=== PATIENT | female | born 2000 | race American Indian/Alaskan Native ===

== ENCOUNTER 2021-04-25 18:12 | Emergency (ER) | payer OTHER ==
[2021-04-25 18:18] VITALS: BP 125/86
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
--- NOTE | 2021-04-25 19:55 | XRay Report ---
CHEST 1 VIEW INDICATION / CLINICAL INFORMATION: chest pain STUDY TIME: 1919 COMPARISON: None available. FINDINGS: SUPPORT DEVICES: None HEART / MEDIASTINUM: No significant abnormality. LUNGS / PLEURA: No significant acute pulmonary or pleural abnormality. No pneumothorax. ADDITIONAL FINDINGS: No significant additional findings. IMPRESSION: No significant acute abnormality Signer Name: Kev Oliver MD Signed: 04/25/2021 7:51 PM Workstation Name: [id number]
--- NOTE | 2021-04-25 19:59 | XRay Report ---
RIGHT SHOULDER 3 VIEWS 1920 INDICATION: Right shoulder injury COMPARISON: None available. FINDINGS: Negative study RIGHT ELBOW 3 VIEWS 1923 INDICATION: Right elbow injury. COMPARISON: None available. FINDINGS: No joint effusion is obvious. No fractures or dislocations are seen. Signer Name: Kev Oliver MD Signed: 04/25/2021 7:55 PM Workstation Name: [id number]
== END 2021-04-25 21:15 | disposition home or self-care (01) ==
LOC: ED 18:12
DX: S53.401A Unspecified sprain of right elbow, initial encounter (principal); S43.401A Unspecified sprain of right shoulder joint, initial encounter; Y04.0XXA Assault by unarmed brawl or fight, initial encounter; Y93.89 Activity, other specified; Y92.89 Other specified places as the place of occurrence of the external cause; Y99.8 Other external cause status
CPT/HCPCS: 71045; 99283